=== PATIENT | female | born 1980 | race Two or more races ===

== ENCOUNTER 2019-07-28 05:50 | Day surgery (SDC) | payer OTHER | END 2019-07-28 09:14 | disposition home or self-care (01) | LOC: AMB-ENDOS 05:50 | DX: D13.1 Benign neoplasm of stomach (principal) ==

== ENCOUNTER 2021-12-16 07:55 | Outpatient (CLI) | payer OTHER | END 2021-12-16 08:02 | disposition home or self-care (01) | LOC: SONOGRAMA 07:55 | PROVIDERS: ATTEND Internal Medicine Gastroenterology | DX: K56.60 Unspecified intestinal obstruction (principal); C18.9 Malignant neoplasm of colon, unspecified; K57.32 Diverticulitis of large intestine without perforation or abscess without bleeding; K59.00 Constipation, unspecified ==